=== PATIENT | male | born 1955 | race Caucasian/White ===

== ENCOUNTER 2020-12-29 08:18 | Emergency (ER) | payer MEDICARE, BC ==
[2020-12-29] MEDS ORDERED: Dextrose 5%-0.9% NaCl 1,000 ML IV SCH (09:00)
[2020-12-29] MEDS ORDERED: Sodium Chloride 0.9% 1,000 ML IV SCH (09:00)
--- NOTE | 2020-12-29 09:01 | EDM.PDOC ---
ED HPI GENERAL MEDICAL PROBLEM - General Chief Complaint: Fever Stated Complaint: COVID SYMPTOMS Time Seen by Provider: 12/29/20 08:40 Source of Information: Reports: Patient History Limitations: Reports: No Limitations - History of Present Illness INITIAL COMMENTS - FREE TEXT/NARRATIVE: 65-year-old male presents to the ED for evaluation of increasing cough and shortness of breath. Patient's has COVID-19 diagnosed yesterday and she was seen through the ED and did receive monoclonal antibody infusion. He believes his symptoms started on Friday, December 24 with headache fever and chills and then generalized myalgia. He still has a retained sense of taste and smell. Increasing productive cough of some yellow-green mucus. No hemoptysis. Dyspnea on minimal exertion. No diarrhea nausea or vomiting. He did have his some oatmeal for breakfast this morning. Chief complaint is mainly fever without chills the last few days. Persistent mild headache and fatigue. Patient has not had COVID-19 vaccination. Onset: Sudden Onset Date: 12/24/20 Duration: Day(s):, Constant, Getting Worse Location: Reports: Head (Headache with nasal congestion), Chest (Increasing dyspnea with productive cough of some yellow-green mucus.), Generalized (Generalized myalgia fatigue), Other (Persistent fever no chills since first day of illness.) Quality: Reports: Ache, Other (Headache and generalized myalgia. Poor appetite but still eating productive cough) Severity: Moderate Improves with: Reports: Rest Worsens with: Reports: Movement (Dyspnea is worse with minimal exertion such as getting dressed.) Context: Reports: Sick Contact (His is sick with COVID-19 illness and he believes). Denies: Activity, Exercise, Lifting, Trauma ( he contracted the virus from her.), Other Associated Symptoms: Reports: Cough, cough w sputum, Fever/Chills (Fever no chills since first day of onset.), Headaches, Loss of Appetite, Malaise (Some yellow-green sputum), Shortness of Breath, Weakness, Other. 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 Respiratory History: Reports: Bronchitis, Recurrent Gastrointestinal History: Reports: GERD Genitourinary History: Reports: Prostate Disorder (Previous diagnosis of prostate cancer with prostatectomy 5 years ago), Other (See Below) (Acute urgency to void.) Musculoskeletal History: Reports: Back Pain, Chronic Endocrine/Metabolic History: Reports: Hypothyroidism Immunologic History: Reports: Immunosuppression Oncologic (Cancer) History: Reports: Prostate (Prostate cancer diagnosed 5 years ago. Treated with da [employer] robot prostatectomy. Recurrence of elevated PSA within the last year and completed 40 hard beam radiation treatments to his pelvis.) - Infectious Disease History Infectious Disease History: Reports: Chicken Pox, Measles, Mumps, Novel Coronavirus - Past Surgical History HEENT Surgical History: Reports: Adenoidectomy, Tonsillectomy Male Surgical History: Reports: Prostatectomy Musculoskeletal Surgical History: Reports: Other (See Below) Other Musculoskeletal Surgeries/Procedures:: back surgery Social & Family History - Tobacco Use Tobacco Use Status *Q: Never Tobacco User Second Hand Smoke Exposure: No - Caffeine Use Caffeine Use: Reports: Coffee - Recreational Drug Use Recreational Drug Use: No - Living Situation & Occupation Living situation: Reports: Occupation: Employed ED ROS GENERAL - Review of Systems Review Of Systems: See Below Constitutional: Reports: Fever, Chills, Weakness, Fatigue, Decreased Appetite, Weight Loss HEENT: Reports: Other (Nasal congestion.) Respiratory: Reports: Shortness of Breath, Cough, Sputum. Denies: Wheezing, Pleuritic Chest Pain, Hemoptysis (Some yellow-greenish sputum production) Cardiovascular: Reports: Blood Pressure Problem, Dyspnea on Exertion. Denies: Chest Pain, Claudication, Edema, Lightheadedness, Orthopnea Endocrine: Reports: Fatigue GI/Abdominal: Reports: Decreased Appetite, Nausea (Intermittent nausea.). Denies: Diarrhea, Vomiting : Reports: Frequency, Urgency (Particularly since read radiation treatments to his pelvis) Musculoskeletal: Reports: Muscle Pain (Neurolyse myalgia particularly neck headache low back thighs) Skin: Reports: No Symptoms Neurological: Reports: Headache, Difficulty Walking, Weakness. Denies: Confusion, Dizziness, Numbness, Paresthesia, Pre-Existing Deficit (Due to dyspnea.), Seizure, Syncope, Tingling, Tremors, Trouble Speaking, Change in Speech ED EXAM, GENERAL - Physical Exam Exam: See Below Exam Limited By: No Limitations General Appearance: Alert, WD/WN, No Apparent Distress, Other (Temperature is 37.2 degrees. Heart rate 92 and sinus respiratory is 19 with O2 sats of 93 to 95% room air. BP 150/76.) Eye Exam: Bilateral Eye: Normal Inspection (No scleral icterus or blepharal pallor.), PERRL Ears: Normal TMs Throat/Mouth: Normal Inspection, Normal Lips, Normal Oropharynx, Other (Oropharynx is normal) Head: Atraumatic ( without exudate.), Normocephalic Neck: Normal Inspection, Supple, Non-Tender, Full Range of Motion. No: Carotid Bruit, Lymphadenopathy (L), Lymphadenopathy (R) Respiratory/Chest: Lungs Clear, Normal Breath Sounds, No Accessory Muscle Use, Respiratory Distress (Mild tachypnea at rest. Mild hypoxia at rest 93 to 95% room air). No: Crackles, Rales, Rhonchi, Wheezing Cardiovascular: Normal Peripheral Pulses, Regular Rate, Rhythm, No Edema, No Gallop, No JVD, No Murmur, No Rub. No: Tachycardia Peripheral Pulses: 2+: Carotid (L), Carotid (R), Posterior Tibial (L), Posterior Tibial (R), Dorsalis Pedis (L), Dorsalis Pedis (R) GI/Abdominal: Normal Bowel Sounds, Soft, Non-Tender, No Organomegaly, No Diste ntion, No Abnormal Bruit, Pelvis Stable, Other (Midline surgical scar from da Jerica robot surgery for radical prostatectomy.) Back Exam: Normal Inspection, Full Range of Motion, Vertebral Tenderness (Mild paravertebral tenderness lumbar spine). No: CVA Tenderness (L), CVA Tenderness (R) Extremities: Normal Inspection, Normal Range of Motion, Non-Tender, No Pedal Edema Neurological: Alert, Oriented, CN II-XII Intact, Normal Cognition Psychiatric: Normal Affect, Normal Mood Skin Exam: Warm, Dry, Intact, Normal Color, No Rash #1 Interpretation EKG Date: 12/29/20 Time: 09:27 Rhythm: NSR Rate (Beats/Min): 87 [place]: Normal P-Wave: Present QRS: Normal ST-T: Other (Mild early repolarization pattern) QT: Normal EKG Interpretation Comments: Normal ECG Course - Vital Signs Last Recorded V/S: Last Vital Signs Temp 37.5 C 12/29/20 11:20 Pulse 80 12/29/20 11:00 Resp 24 H 12/29/20 11:00 BP 126/78 12/29/20 11:00 Pulse Ox 92 L 12/29/20 11:00 - Orders/Labs/Meds Labs: Laboratory Tests 12/29/20 12/29/20 12/29/20 Range/Units 08:55 08:55 08:55 WBC 4.32 (4.23-9.07) K/mm3 RBC 4.65 (4.63-6.08) M/mm3 Hgb 13.4 L (13.7-17.5) gm/dl Hct 41.2 (40.1-51.0) % MCV 88.6 (79.0-92.2) fl MCH 28.8 (25.7-32.2) pg MCHC 32.5 (32.2-35.5) g/dl RDW Std Deviation 46.5 H (35.1-43.9) fL Plt Count 97 L (163-337) K/mm3 MPV 12.0 (9.4-12.3) fl Neut % (Auto) 87.9 H (34.0-67.9) % Lymph % (Auto) 5.8 L (21.8-53.1) % [place]rill % (Auto) 6.3 (5.3-12.2) % Eos % (Auto) 0 L (0.8-7.0) Baso % (Auto) 0.0 L (0.1-1.2) % Neut # (Auto) 3.80 (1.78-5.38) K/mm3 Lymph # (Auto) 0.25 L (1.32-3.57) K/mm3 [place]rill # (Auto) 0.27 L (0.30-0.82) K/mm3 Eos # (Auto) 0.00 L (0.04-0.54) K/mm3 Baso # (Auto) 0.00 L (0.01-0.08) K/mm3 Manual Slide Review Abnormal smear PT 10.7 (9.7-12.0) SECONDS INR 1.00 APTT 32.4 H (21.7-31.4) SECONDS D-Dimer, Quantitative 0.38 (0.19-0.50) mg/L Sodium 137 (136-145) mEq/L Potassium 3.9 (3.5-5.1) mEq/L Chloride 102 (98-107) mEq/L Carbon Dioxide 24 (21-32) mEq/L Anion Gap 14.9 (5-15) BUN 12 (7-18) mg/dL Creatinine 1.3 (0.7-1.3) mg/dL Est Cr Clr Drug Dosing 56.93 mL/min Estimated GFR (MDRD) 55 (>60) mL/min BUN/Creatinine Ratio 9.2 L (14-18) Glucose 198 H (70-99) mg/dL Calcium 8.0 L (8.5-10.1) mg/dL Magnesium 1.9 (1.8-2.4) mg/dL Ferritin (26-388) ng/ml Total Bilirubin 0.4 (0.2-1.0) mg/dL AST 26 (15-37) U/L ALT 39 (16-63) U/L Alkaline Phosphatase 41 L (46-116) U/L Lactate Dehydrogenase 203 (85-227) U/L Troponin I < 0.017 (0.00-0.056) ng/mL C-Reactive Protein 2.0 H* (<1.0) mg/dL NT-Pro-B Natriuret Pep (0-125) pg/mL Total Protein 6.9 (6.4-8.2) g/dl Albumin 3.7 (3.4-5.0) g/dl Globulin 3.2 gm/dL Albumin/Globulin Ratio 1.2 (1-2) SARS-CoV-2 RNA (TYSHAWN) (NEGATIVE) 12/29/20 12/29/20 12/29/20 Range/Units 08:55 08:55 09:00 WBC (4.23-9.07) K/mm3 RBC (4.63-6.08) M/mm3 Hgb (13.7-17.5) gm/dl Hct (40.1-51.0) % MCV (79.0-92.2) fl MCH (25.7-32.2) pg MCHC (32.2-35.5) g/dl RDW Std Deviation (35.1-43.9) fL Plt Count (163-337) K/mm3 MPV (9.4-12.3) fl Neut % (Auto) (34.0-67.9) % Lymph % (Auto) (21.8-53.1) % [place]rill % (Auto) (5.3-12.2) % Eos % (Auto) (0.8-7.0) Baso % (Auto) (0.1-1.2) % Neut # (Auto) (1.78-5.38) K/mm3 Lymph # (Auto) (1.32-3.57) K/mm3 [place] # (Auto) (0.30-0.82) K/mm3 Eos # (Auto) (0.04-0.54) K/mm3 Baso # (Auto) (0.01-0.08) K/mm3 Manual Slide Review PT (9.7-12.0) SECONDS INR APTT (21.7-31.4) SECONDS D-Dimer, Quantitative (0.19-0.50) mg/L Sodium (136-145) mEq/L Potassium (3.5-5.1) mEq/L Chloride (98-107) mEq/L Carbon Dioxide (21-32) mEq/L Anion Gap (5-15) BUN (7-18) mg/dL Creatinine (0.7-1.3) mg/dL Est Cr Clr Drug Dosing mL/min Estimated GFR (MDRD) (>60) mL/min BUN/Creatinine Ratio (14-18) Glucose (70-99) mg/dL Calcium (8.5-10.1) mg/dL Magnesium (1.8-2.4) mg/dL Ferritin 453 H (26-388) ng/ml Total Bilirubin (0.2-1.0) mg/dL AST (15-37) U/L ALT (16-63) U/L Alkaline Phosphatase (46-116) U/L Lactate Dehydrogenase (85-227) U/L Troponin I (0.00-0.056) ng/mL C-Reactive Protein (<1.0) mg/dL NT-Pro-B Natriuret Pep 125 (0-125) pg/mL Total Protein (6.4-8.2) g/dl Albumin (3.4-5.0) g/dl Globulin gm/dL Albumin/Globulin Ratio (1-2) SARS-CoV-2 RNA (TYSHAWN) Positive H (NEGATIVE) Meds: Medications Discontinued Medications Generic Name Dose Route Start Last Admin Trade Name Freq PRN Reason Stop Dose Admin Diphenhydramine HCl 50 mg 12/29/20 09:59 Diphenhydramine 50 Mg/Ml Sdv IVPUSH ONETIME PRN hypersensitivity reaction Epinephrine HCl 0.3 mg 12/29/20 09:59 Epinephrine 1 Mg/Ml Sdv IM ONETIME PRN hypersensitivity reaction Famotidine 20 mg 12/29/20 09:59 Famotidine 20 Mg/2 Ml Sdv IVPUSH ONETIME PRN hypersensitivity reaction Dextrose/Sodium Chloride 1,000 mls @ 100 mls/hr 12/29/20 09:00 12/29/20 09:25 Dextrose 5%-Normal Saline IV 100 mls/hr ASDIRECTED LARON Administration Sodium Chloride 1,000 mls @ 125 mls/hr 12/29/20 09:00 Normal Saline IV ASDIRECTED LARON CASIRIVIMAB/IMDEVIMAB 10 ml/ 110 mls @ 220 mls/hr 12/29/20 09:59 12/29/20 10:23 Sodium Chloride IV 12/29/20 10:28 220 mls/hr ONETIME ONE Administration Ibuprofen 600 mg 12/29/20 09:59 12/29/20 11:20 Ibuprofen 600 Mg Tab PO 12/29/20 10:00 600 mg ONETIME ONE Administration Methylprednisolone Sodium Succinate 125 mg 12/29/20 09:59 Methylprednisolone Sodium Succinate 125 Mg/2 Ml Sdv IVPUSH ONETIME PRN hypersensitivity reaction Sodium Chloride 30 ml 12/29/20 10:00 Sodium Chloride 0.9% 10 Ml Syringe FLUSH ASDIRECTED LARON - Radiology Interpretation Free Text/Narrative:: 65-year-old male presents to the ED with COVID-19 symptoms. This started on December 24. His is at home with Covid positivity and was seen through the ED yesterday and given monoclonal antibody therapy. He believes she he contracted the virus from her. He has not received COVID-19 vaccination. At present he has a low-grade fever. States he has intermittent sweats. Decreased appetite but he is still eating. No vomiting or diarrhea. He feels that he has retained his sense of taste and smell. He is short of breath on minimal exertion with a productive cough of some yellow-green sputum. Mild associated nasal congestion minimal sore throat. He is currently on day 6 of illness. Mildly tachypneic and O2 sats 93 to 95% room air. Plan COVID-19 evaluation and testing to include chest x-ray ECG and labs. Potential he is a candidate for monoclonal antibody therapy. - Re-Assessments/Exams Free Text/Narrative Re-Assessment/Exam: 12/29/20 09:32 chest x-ray done portably reveals normal cardiac silhouette and mediastinum. There is slight right perihilar infiltrate. Slight density is seen within the left lung base reported as scarring however I feel this most likely represents a viral infiltrate. No discrete osseous abnormality for the patient's age. 12/29/20 09:33 White count is normal at 4.32. Differential shows 87.9% neutrophils. Hemoglobin is 13.4 with hematocrit 41.2. Platelet count is low at 97,000. PT is 10.7 with an INR of 1.00. PTT is 32.4. D-dimer is normal at 0.38 12/29/20 09:52 Chemistry reveals a sodium of 137 potassium of 3.9. Chloride 102 with a bicarb of 24. Anion gap is 14.9. BUN is 12 with a creatinine of 1.3 and a GFR of 55. Glucose is elevated at 198. Calcium is low at 8.0. Magnesium normal at 1.9. Liver function normal. LDH is 203. Troponin I is less than 0.017. C-reactive protein is 2.0. Total protein is 6.9 with an albumin fraction of 3.7. COVID-19 screen is positive. Patient was given the information to read about the Regen-Cov. The plan will be to proceed with this infusion. The patient is febrile at this time. He last took Tylenol at 0600 hrs. this morning. He will be given Motrin 600 mg p.o. now. I have spoken with Mariana Sue Whittakerluis [email or web address] to provide information about Regen-Cov for himself. I offered him the fax sheet for patients and patient/caregivers for Regen-Cov to read and review. He was advised that the therapy has been approved by an emergency use authorization process is not has not been fully FDA reviewed or approved. I shared potential risks from the therapy including allergic and adverse reactions. He was advised that I discussed that there are potential other treatment options that are currently not FDA approved for treatment of COVID-19. Offered opportunity to ask questions and all questions were answered . Patient ID Mr. Sue Brock wishes to agree to proceed with treatment for himself with a good understanding since his had the medication yesterday. 12/29/20 10:08 Serum ferritin is elevated at 453 BNP is 125. 12/29/20 11:57 patient has completed his monoclonal antibody infusion 25 minutes ago and has no issues. Current O2 sats are 95% on room air. BP 131/71. Heart rate is 84 and sinus. Patient will be given a pulse oximeter at the time of discharge and will check his O2 sats ideally 4 times a day and return if his O2 sats are staying around 88% for 2 consecutive hours. Departure - Departure Time of Disposition: 12:06 Disposition: Home, Self-Care 01 Clinical Impression: Pneumonia due to COVID-19 virus - Discharge Information *PRESCRIPTION DRUG MONITORING PROGRAM REVIEWED*: Not Applicable *COPY OF PRESCRIPTION DRUG MONITORING REPORT IN PATIENT RACHEL: Not Applicable Instructions: COVID-19 Frequently Asked Questions, 10 Things You Can Do to Manage Your COVID-19 Symptoms at Home - [facility] (11/03/2019) Referrals: Pietro Moreno MD [Primary Care Provider] - Forms: ED Department Discharge Additional Instructions: Evaluation in the emergency room today in regards to presenting with COVID-19 symptoms which are highly suspect have since her is also positive. Your symptoms started on December 24 making her day 5-6 of illness. You are still considered contagious to others for at least another 5 days usually 10 days from the time of onset of symptoms. This means self quarantining at home. Today you chest x-ray does show mild COVID-19 pneumonia in the right lower lobe. Covid test was of course positive. You were therefore given monoclonal antibody therapy called Regen-Cov. The idea behind this is giving you immediate immunity to the COVID-19 virus and hopefully keeping you from getting worse. Use your pulse oximeter at home about 3 or 4 times a day and check your oxygen levels. If your oxygen levels are staying 88% or lower for more than 2 consecutive hours you would need to return to the emergency room for likely admission to the hospital. Worst days of illness are usually day 8-11 from onset of symptoms. Sepsis Event Note (ED) - Evaluation Sepsis Screening Result: No Definite Risk - Focused Exam Vital Signs: Vital Signs Temp Temp Pulse Resp BP Pulse Ox 12/29/20 11:20 37.5 C 12/29/20 11:00 37.5 C 80 24 H 126/78 92 L 12/29/20 08:25 37.2 C 92 19 150/76 H 93 L
--- NOTE | 2020-12-29 09:33 | CR ---
Chest: Frontal view of the chest was obtained. Comparison: No previous chest imaging is available. Slight density is seen within the left base most likely representing scarring. Lungs otherwise are clear with no acute parenchymal change. Heart size and mediastinum are within normal limits. No discrete osseous abnormality is seen for the patient's age. Impression: 1. Findings as noted above. 2. Nothing acute is seen on frontal chest x-ray. Diagnostic code #2
[2020-12-29] MEDS ORDERED: EPINEPHrine 1 MG/ML SDV IM PRN (09:59)
[2020-12-29] MEDS ORDERED: Ibuprofen 600 MG Tab PO ONE (09:59)
[2020-12-29] MEDS ORDERED: diphenhydrAMINE 50 MG/ML SDV IVPUSH PRN (09:59)
[2020-12-29] MEDS ORDERED: methylPREDNISolone Sodium Succinate 125 MG/2 ML SDV IVPUSH PRN (09:59)
[2020-12-29] MEDS ORDERED: Famotidine 20 MG/2 ML SDV IVPUSH PRN (09:59)
[2020-12-29] MEDS ORDERED: Sodium Chloride 0.9% 10 ML Syringe FLUSH SCH (10:00)
== END 2020-12-29 12:06 | disposition home or self-care (01) ==
LOC: JD.ED 08:18
DX: U07.1 COVID-19 (principal); J12.82 Pneumonia due to coronavirus disease 2019; E03.9 Hypothyroidism, unspecified; Z88.5 Allergy status to narcotic agent; Z79.899 Other long term (current) drug therapy
CPT/HCPCS: 36415; 71045; 80053; 82728; 83615; 83735; 83880; 84484; 85025; 85379; 85610; 85730; 86140; 93005; 99285; A9270; J7042; M0243; Q0243; U0002; 93010; 99284